=== PATIENT | female | born 1995 | race Caucasian/White ===

== ENCOUNTER 2021-07-17 15:11 | Emergency (ER) | payer SELFPAY ==
[~2021-07-17] VITALS: Ht 157.5 cm; Wt 77.0 kg
[2021-07-17 15:36] VITALS: BP 139/78
--- NOTE | 2021-07-17 15:40 | PHYS DOC ---
Past History Additional Past Medical Histor: chronic nerve pain cervical plexus (KEIKO CONNELL) General Adult EDM: Chief Complaint: Neck Pain HPI: HPI: Patient is a 26 year old female who presents with neck and bilateral shoulder pain. 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 Patient takes gabapentin for her neuropathy, but has not been helping. Patient states she recently moved from [place], and has experienced significant stress in the past few days. Patient reports history of right carpal tunnel release as well. Patient denies any new trauma or injury, paresthesias, loss of function/weakness in upper extremities. (KEIKO CONNELL) Review of Systems: Review of Systems: ROS negative or noncontributory except as mentioned in HPI. (KEIKO CONNELL) Current Medications: Current Meds: Current Medications Medications (Trade) Dose Ordered Sig/Sánchez Route PRN Reason Start Time Stop Time Status Last Admin Dose Admin Ketorolac Tromethamine (Toradol 30mg Vial) 30 mg 1X ONCE IM 07/17/21 15:45 07/17/21 16:03 DC 07/17/21 15:45 Orphenadrine Citrate (Norflex) 60 mg 1X ONCE IM 07/17/21 15:45 07/17/21 16:03 DC 07/17/21 15:45 (KEIKO CONNELL) Physical Exam: PE: Constitutional: Well developed, well nourished, no acute distress, non-toxic appearance. HENT: Normocephalic, atraumatic, bilateral external ears normal, nose normal. Eyes: EOMI, conjunctiva normal, no discharge. Neck: Normal range of motion, no step-off, bilateral paraspinal spasm with overlying tenderness appreciated, no stridor. Skin: Warm, dry, no erythema, no rash. Well-healed scar perpendicular to wrist flexion fold noted, consistent with prior carpal tunnel release. Back: No step-off, no tenderness. Extremities: No tenderness, no cyanosis, no clubbing, ROM intact, no edema, capillary refill less than 2 seconds bilaterally. 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 (KIEKO CONNELL) Current Patient Data: Vital Signs: VS - Last 72 Hours, by Label Date Time Temp Pulse Resp B/P (MAP) Pulse Ox O2 Delivery O2 Flow Rate FiO2 07/17/21 15:36 98.1 83 18 139/78 (98) 98 Room Air (KEIKO CONNELL) Heart Score: C/O Chest Pain: No (KEIKO CONNELL) Course & Med Decision Making: Course & Med Decision Making Pertinent Labs and Imaging studies reviewed. (See chart for details) Patient is a 26-year-old female with chronic neck pain who presents with an acute exacerbation that is not well controlled with her medication at home. Patient will be treated today for muscle spasm, which can contribute further to nerve pain. This was discussed with the patient. Return precautions were provided. I also discussed with her establishing both primary and pain management care here locally, as she recently moved to the area. Patient is appreciative. She understands and is agreeable to discharge plan. (KEIKO CONNELL) Dragon Disclaimer: Dragon Disclaimer: This electronic medical record was generated, in whole or in part, using a voice recognition dictation system. (KEIKO CONNELL) Attending Co-Sign The patient was seen and interviewed as well as examined at the bedside. The chart was reviewed. The case was discussed. Agree with the plan of care. (LACY JENNINGS DO) Departure Departure: Impression: Primary Impression: Muscle spasms of neck Additional Impression: Chronic neck pain Disposition: HOME / SELF CARE / HOMELESS Condition: IMPROVED Referrals: PCP,NO (PCP) WILBERTO TORRES MD Patient Instructions: Chronic Pain Management, Pain, Neuropathic Additional Instructions: EMERGENCY DEPARTMENT GENERAL DISCHARGE INSTRUCTIONS Thank you for coming to [facility] (ED) today and trusting us with you care. We trust that you had a positive experience in our Emergency Department. If you wish to speak to the department management, you may call the director at [phone]. YOUR FOLLOW UP INSTRUCTIONS ARE FOLLOWS: 1. Follow up with your primary care doctor. If you do not have a primary doctor, please ask for a resource list of physicians or clinics that may be able to assist you with follow up care. 2. The emergency provider has interpreted your imaging studies, if any were ordered. The radiology clinical account specialist also reviewed them. If there is a change in the findings, you will be notified in 48 hours when at all possible. 3. If a lab test or culture has been done, your results will be reviewed and you will be notified if you need a change in treatment. 4. Follow instructions verbalized to you and refer to the printouts if needed. ADDITIONAL INSTRUCTIONS AND INFORMATION: 1. Your care today has been supervised by a physician who is specially trained in emergency care. Many problems require more than one evaluation for a complete diagnosis and treatment. We recommend that you schedule your follow up appointment as recommended to ensure complete treatment of you illness or injury. If you are unable to obtain follow up care and continue to have a problem, or if your condition worsens, we recommend that you return to the ED. 2. We are not able to safely determine your condition over the phone nor are we able to give sound medical advice over the phone. For these safety reasons, if you call for medical advice we will ask you to come to the ED for further evaluation. 3. If you have any questions regarding these discharge instructions please call the ED at [phone]. SAFETY INFORMATION: In the interest of safety, wellness, and injury prevention; we encourage you to wear your seat belt, if you smoke; quite smoking, and we encourage family to use a protective helmet for bicycling and other sporting events that present an increased risk for head injury. IF YOUR SYMPTOMS WORSEN OR NEW SYMPTOMS DEVELOP, OR YOU HAVE CONCERNS ABOUT YOUR CONDITION; OR IF YOUR CONDITION WORSENS WHILE YOU ARE WAITING FOR YOUR FOLLOW UP APPOINTMENT; EITHER CONTACT YOUR PRIMARY CARE DOCTOR, THE PHYSICIAN WHOSE NAME AND NUMBER YOU WERE GIVEN, OR RETURN TO THE ED IMMEDIATELY. Scripts Orphenadrine Citrate (ORPHENADRINE CITRATE) 100 Mg Tablet.er 1 TAB PO BID for muscle spasm, #20 TAB Prov: KEIKO CONNELL 07/17/21 KEIKO CONNELL Jul 17, 2021 15:39 LACY JENNINGS DO Jul 18, 2021 16:50
[2021-07-17] MEDS: ORPHENADRINE CITRATE 60 MG/2 ML VIAL. IM ONE (15:45)
[2021-07-17] MEDS: KETOROLAC 30 MG/ML VIAL. IM ONE (15:45)
[2021-07-17] MEDS ORDERED: ORPH-16 PO (15:48)
== END 2021-07-17 16:05 | disposition home or self-care (01) ==
LOC: ER 15:11
DX: M62.838 Other muscle spasm (principal); G89.29 Other chronic pain; M25.511 Pain in right shoulder; M25.512 Pain in left shoulder
CPT/HCPCS: 96372; 99284; J1885; J2360